=== PATIENT | female | born 2000 | race African-American/Black ===

== ENCOUNTER 2025-01-16 12:31 | Observation (INO) | payer SELFPAY ==
[2025-01-16] MEDS ORDERED: Acetaminophen 325 MG TAB PO PRN (14:30)
[2025-01-16] MEDS ORDERED: Melatonin 3 MG TAB PO PRN (14:30)
[2025-01-16] MEDS: Ondansetron PF 4 MG/2 ML Vial IVP PRN (14:47)
[2025-01-16 15:11] VITALS: BMI 28.8
[2025-01-16 15:32] LABS: Anion Gap 18 mmol/L (10-20); BUN (Urea Nitrogen) 13 mg/dL (7.0-18.7); Calc. Creatinine Clearance 137 mL/min (70-130); Calcium 9.2 mg/dL (7.8-10.44); Carbon Dioxide 21 mmol/L (22-29); Chloride 107 mmol/L (98-107); Glucose 87 mg/dL (70-105); Potassium 3.3 mmol/L (3.5-5.1); Sodium 143 mmol/L (136-145)
[2025-01-16] MEDS ORDERED: FLU (Fluarix Triv) 25-26 (6MOS UP)/PF 45 MCG/0.5 ML Syringe IM ONE (15:45)
[2025-01-16] MEDS: NS 0.9% w/ 40 MEQ KCL 1,000 ML IV SCH (17:19)
[2025-01-16 20:23] VITALS: BP 119/57; TEMP 98.6
== END 2025-01-16 20:29 | disposition home or self-care (01) ==
LOC: MSONC 13:36
PROVIDERS: ADMIT Internal Medicine; ATTEND Internal Medicine
DX: R11.2 Nausea with vomiting, unspecified (principal); E87.6 Hypokalemia; D27.9 Benign neoplasm of unspecified ovary
CPT/HCPCS: 36415; J2405; J3480